=== PATIENT | male | born 1950 | race Caucasian/White ===

== ENCOUNTER 2016-08-29 07:53 | Emergency (ER) | payer MEDICARE ==
[~2016-08-29] VITALS: Ht 182.9 cm; Wt 98.0 kg
[2016-08-29] MEDS ORDERED: SODIUM CHLORIDE 0.9% NEB SOLN 3 ML VIAL ONE (08:14)
[2016-08-29] MEDS ORDERED: LEVALBUTEROL 1.25 MG/0.5 ML (XOPENEX) NEB INH ONE (08:15)
[2016-08-29 08:37] LABS: INFLUENZA VIRUS TYPE A ANTIBOD Positive (NEGATIVE); INFLUENZA VIRUS TYPE B ANTIBOD Negative (NEGATIVE)
[2016-08-29] MEDS ORDERED: predniSONE 20 MG (DELTASONE) TABLET PO ONE (08:50)
[2016-08-29] MEDS ORDERED: LEVOFLOXACIN 250 MG TAB (LEVAQUIN) PO SCH (08:50)
[2016-08-29 09:07] VITALS: BP 129/76
== END 2016-08-29 09:08 | disposition home or self-care (01) ==
LOC: EDUNIT# 07:53 → ED 07:55
DX: J10.00 Influenza due to other identified influenza virus with unspecified type of pneumonia (principal); J45.901 Unspecified asthma with (acute) exacerbation; Z87.891 Personal history of nicotine dependence
CPT/HCPCS: 71020; 87502; 94640; 99282; A9270; 99283

== ENCOUNTER 2016-09-08 17:25 | Inpatient (IN) | payer MEDICARE ==
[~2016-09-08] VITALS: Ht 182.9 cm; Wt 94.3 kg
[2016-09-08] MEDS ORDERED: ALBUTEROL 0.083% NEB SOLUTION 2.5 MG/3 ML VIAL INH ONE (17:45)
[2016-09-08] MEDS ORDERED: IPRATROPIUM 0.02% NEB SOLN 0.5 MG/2.5 ML (ATROVENT) INH ONE (17:45)
[2016-09-08 18:21] LABS: MEAN CORPUSCULAR VOLUME 90 FL (80-100); PLATELET COUNT 199 10^3uL (150-450); WHITE BLOOD COUNT 6.98 10^3uL (4.0-11.0)
[2016-09-08 18:30] LABS: ANION GAP 16.5 MEQ/L (3-15); CALCULATED IONIZED CALCIUM 4.1 mg/dL (3.8-4.6); TOTAL PROTEIN 7.2 g/dL (6.4-8.5)
[2016-09-08 18:33] LABS: MEAN CORPUSCULAR HEMOGLOBIN 31.9 PG (26.0-34.0); MEAN CORPUSCULAR HGB CONC 35.5 g/dL (31.0-37.0)
[2016-09-08 18:34] LABS: BAND NEUTROPHILS % 4 % (0-6); LYMPHOCYTES # 0.9 #; SEGMENTED NEUTROPHILS % 61 % (51-67)
[2016-09-08 18:35] LABS: EOSINOPHILS % 3 % (0-4); MONOCYTES # 1.1 #; MONOCYTES % 18 % (3-11); RBC MORPH NORMAL (NORMAL); TOTAL CELLS COUNTED 100
[2016-09-08] MEDS ORDERED: cefTRIAXone SODIUM 1,000 MG in SODIUM CHLORIDE 50 ML IV ONE (19:00)
[2016-09-08] MEDS ORDERED: AZITHROMYCIN VIAL 500 MG in SODIUM CHLORIDE 250 ML IV ONE (19:00)
[2016-09-08 19:15] VITALS: BP 129/86
--- NOTE | 2016-09-08 19:15 | NUR ---
Patient admitted to room and hospital procedures. Call light within reach. Dr jacob to see patient.
[2016-09-08] MEDS ORDERED: ACETAMINOPHEN 325 MG TAB (TYLENOL) PO PRN (19:40)
[2016-09-08] MEDS ORDERED: CALCIUM CARBONATE CHEWABLE 300 MG (TUMS) TABLET PO PRN (19:40)
[2016-09-08] MEDS ORDERED: ALBUTEROL HFA (VENTOLIN HFA) COMMON CANNISTER IH PRN (19:40)
[2016-09-08 19:57] VITALS: BP 129/86
[2016-09-08] MEDS ORDERED: VANCOMYCIN 1000 MG VIAL ONE (20:08)
[2016-09-08] MEDS ORDERED: SODIUM CHLORIDE 250 ML ONE (20:09)
[2016-09-08] MEDS ORDERED: PIPERACILLIN/TAZOBACTAM 4.5 GM (ZOSYN) VIAL IV ONE (20:42)
[2016-09-08] MEDS ORDERED: SODIUM CHLORIDE 100 ML ONE (20:43)
[2016-09-08] MEDS ORDERED: VANCOMYCIN 1,000 MG in SODIUM CHLORIDE 250 ML IV SCH (21:00)
[2016-09-08] MEDS ORDERED: FLUTICASONE/SALMETEROL HFA 115/21 MCG (ADVAIR) COMMON CANNISTER INH ONE (21:15)
--- NOTE | 2016-09-08 22:00 | NUR ---
Patient resting well. IV fluids infused. IV antibiotics administered as ordered. Patient states that he feels better already. Ready for sleep. No discomforts voiced at this time. Reminded patient to use call light.
[2016-09-08] MEDS: PIPERACILLIN/TAZOBACTAM 4.5 GM in SODIUM CHLORIDE 100 ML IV SCH (22:09)
[2016-09-08] MEDS: MONTELUKAST 10 MG (SINGULAIR) TAB PO SCH (22:11)
[2016-09-09 01:14] VITALS: BP 104/62
[2016-09-09 06:13] LABS: BASOPHILS % (AUTO) 0 % (0-2); EOSINOPHILS # (AUTO) 0.2 10^3uL; EOSINOPHILS % (AUTO) 4 % (0-4); LYMPHOCYTES # (AUTO) 0.7 X10^3; MEAN CORPUSCULAR HGB CONC 35.1 g/dL (31.0-37.0); MEAN CORPUSCULAR VOLUME 91 FL (80-100); MEAN PLATELET VOLUME 9.8 FL (6.0-9.5); MONOCYTES # (AUTO) 0.9 X10^3; MONOCYTES % (AUTO) 15 % (3-11); NEUTROPHILS # (AUTO) 3.9 X10^3; NEUTROPHILS % (AUTO) 67 % (51-67); PLATELET COUNT 169 10^3uL (150-450); WHITE BLOOD COUNT 5.73 10^3uL (4.0-11.0)
[2016-09-09 06:18] LABS: MEAN CORPUSCULAR HEMOGLOBIN 32.1 PG (26.0-34.0)
--- NOTE | 2016-09-09 06:30 | NUR ---
Patient rested at long intervals tonight.. No discomforts voiced. IV antibiotics continue. No complications at IV site. Patient is voiding without difficulty. No needs or concerns this morning.
[2016-09-09] MEDS: PIPERACILLIN/TAZOBACTAM 4.5 GM in SODIUM CHLORIDE 100 ML IV SCH ×3 (06:39→22:21)
[2016-09-09 06:53] LABS: ALBUMIN 2.9 g/dL (3.4-5.0); ANION GAP 11.3 MEQ/L (3-15); CALCULATED IONIZED CALCIUM 4.3 mg/dL (3.8-4.6); TOTAL PROTEIN 5.4 g/dL (6.4-8.5)
[2016-09-09] MEDS ORDERED: [UNRECOGNIZED DRUG - OTHER] IH SCH (08:00)
[2016-09-09] MEDS ORDERED: FLUTICASONE IH SCH (08:00)
[2016-09-09] MEDS ORDERED: SALMETEROL IH SCH (08:00)
[2016-09-09] MEDS: TIOTROPIUM 18 MCG/CAP (SPIRIVA) INHALER (5 CAPS) IH SCH (08:00)
--- NOTE | 2016-09-09 08:20 | NUR ---
NUTRITION ASSESSMENT Level 1 Patient: Riley Milligan Age/Sex: 66/M Date Screened: 09-09-16 Weight: 206.5#/93.9 kg Height: 72 inches Primary Diagnosis: pneumonia Diet Order: regular Relevant labs: glucose 116 Food allergies: N Nutrition Assessment Criteria Age over 80: N Body Mass Index (BMI) under 19: N Admission Screening Indicates Risk? 3 points Moderate/High Risk Diagnosis: 3 points TPN or PPN: N NPO or clear liquid diet: N Serum Glucose <70 or >180: N Hgb A1c >6.7: N/A Total: 6 points Risk Screen: __ Patient at low nutritional risk based on available data; reevaluate in 5-7 days __ Patient at moderate nutritional risk based on available data; reevaluate in 3-5 days _X_ Patient at high nutritional risk; complete Nutrition Assessment within 48 hours of admission.
[2016-09-09 08:37] VITALS: BP 121/81
[2016-09-09] MEDS: LORATADINE (CLARITIN) 10 MG TAB PO SCH (09:11)
[2016-09-09] MEDS: ASPIRIN 81 MG CHEW (CHILDREN'S ASA) PO SCH (09:11)
[2016-09-09] MEDS: ENOXAPARIN 40 MG/0.4 ML (LOVENOX) SYR SC SCH (09:12)
--- NOTE | 2016-09-09 09:14 | NUR ---
unable to give vanco at this time. zosyn still infusing
[2016-09-09] MEDS ORDERED: NS FLUSH 10 ML PRN IV (09:40)
[2016-09-09] MEDS ORDERED: NS FLUSH 3 ML PRN IV (09:40)
--- NOTE | 2016-09-09 10:30 | NUR ---
MED REC COMPLETE--current med list obtained from patient interview conducted by Verito Cabrera, Pharm. D. Candidate 2017.
[2016-09-09] MEDS: FLUTICASONE/SALMETEROL HFA 115/21 MCG (ADVAIR) COMMON CANNISTER INH SCH ×2 (10:45→19:24)
[2016-09-09] MEDS ORDERED: VANCOMYCIN 2000 MG in NS IV 480 ML IV SCH (11:00)
[2016-09-09 16:53] VITALS: BP 115/77
--- NOTE | 2016-09-09 17:55 | NUR ---
Vancomycin Dosing: Pharmacy Managed S: Pneumonia (failed outpatient therapy--7 day course of Levaquin) O: 66 yo male with continued cough and dyspnea on exertion. Blood cx pending; lactic acid 2.4 mmol/L, SCr 1.53 mg/dL, CrCl 55 mL/min. A/P: Zosyn and vancomycin initiated empirically. Patient received vancomycin 1 g IV x 1 dose. Recommend vancomycin 2 g IV daily to achieve therapeutic goal of 15-20 mcg/mL. Predicted trough = 15.9 mcg/mL. Draw trough prior to 4th overall dose (09/11/16 at 1030).
--- NOTE | 2016-09-09 18:06 | NUR ---
NUTRITION ASSESSMENT Level II Patient: Riley Milligan Age/Sex: 66/M Date Assessed: 09-09-16 ASSESSMENT Pertinent History: Patient admitted with pneumonia and screened at high nutritional risk secondary to diagnosis and recent hospitalization (independent risk factor for malnutrition), as well as reported 5# weight loss. PMHx includes COPD and hospitalization last week for pneumonia. Documented weight hx. includes 208.6# on 09-01-16, which was stable over the past 6 months. Meds/Nutrition: N/A Weight: 206.5#/93.9 kg Height: 72 inches Body Mass Index (BMI): 28.1 [place] Body Weight : 178#/80.9 kg % IBW: 116% GASTROINTESTINAL Appetite: stated good on admission Diet Order: regular Unintentional loss of >10 lbs. in 3 months: N Difficult to chew/swallow: N Diabetes: N Relevant Labs: glucose 116 Calculations for Nutritional Assessment Estimated calorie needs: 22-25 kcals/kg = 2,000-2,325 kcals Estimated protein needs: 1.0-1.3 g/kg = 93-120 g./day DIAGNOSIS 1. Nutrition Diagnosis: Increased protein needs related to increased work of breathing as evidenced by pneumonia in pt. with COPD. NUTRITIONAL INTERVENTION Goal: Patient will receive adequate nutrition to meet his needs. Plan: Will provide regular diet as ordered with emphasis on protein; recommend minimum intake of 93 g. protein/day as calculated above. Will monitor intake for adequacy and reassess regularly. MONITORING & EVALUATION _X_ Monitor patients menu selections _X_ Monitor patients food intake per nursing notes __ Monitor NPO/clear liquid days __ Monitor lab values __ Monitor I&O __ Other
[2016-09-09] MEDS ORDERED: cefTRIAXone SODIUM 1,000 MG in SODIUM CHLORIDE 50 ML IV ONE (19:00)
[2016-09-09] MEDS ORDERED: AZITHROMYCIN VIAL 500 MG in SODIUM CHLORIDE 250 ML IV ONE (19:00)
--- NOTE | 2016-09-09 19:45 | NUR ---
Pt is sitting up on side of bed visiting with friend. Alert and oriented x 4, Resp are even and nonlabored. SL is patent, no redness, swelling, or s/s of infection noted at this time. Denies pain or discomfort at this time. Pt was up ambulating in hallways at shift change. See shift assessment for further information. Call light is in reach, will continue to monitor.
[2016-09-09] MEDS: MONTELUKAST 10 MG (SINGULAIR) TAB PO SCH (22:21)
[2016-09-10] VITALS: BP 117/75
--- NOTE | 2016-09-10 04:18 | NUR ---
Pt is resting in bed asleep, has been sleeping most of this shift. Denies pain or discomfort during this shift. Call light is in reach, will continue to monitor.
[2016-09-10] MEDS: PIPERACILLIN/TAZOBACTAM 4.5 GM in SODIUM CHLORIDE 100 ML IV SCH (05:33)
[2016-09-10 08:11] VITALS: BP 118/70
[2016-09-10] MEDS: FLUTICASONE/SALMETEROL HFA 115/21 MCG (ADVAIR) COMMON CANNISTER INH SCH (09:00)
[2016-09-10] MEDS ORDERED: NS FLUSH 3 ML DAILY IV SCH (09:00)
[2016-09-10] MEDS: TIOTROPIUM 18 MCG/CAP (SPIRIVA) INHALER (5 CAPS) IH SCH (09:00)
[2016-09-10] MEDS ORDERED: AMOXICILLIN/CLAVULANATE 875MG-125MG (AUGMENTIN) TABLET PO SCH (09:55)
[2016-09-10] MEDS: LORATADINE (CLARITIN) 10 MG TAB PO SCH (09:59)
[2016-09-10] MEDS: ASPIRIN 81 MG CHEW (CHILDREN'S ASA) PO SCH (09:59)
[2016-09-10] MEDS: ENOXAPARIN 40 MG/0.4 ML (LOVENOX) SYR SC SCH (10:00)
[2016-09-10] MEDS ORDERED: DOXYCYCLINE 100 MG (VIBRAMYCIN) TABLET PO SCH (10:03)
[2016-09-10 10:24] LABS: ALBUMIN 3.5 g/dL (3.4-5.0); ANION GAP 12.1 MEQ/L (3-15); PHOSPHORUS 2.6 mg/dL (2.4-4.9)
[2016-09-10] MEDS ORDERED: VANCOMYCIN COMPOUNDED BY PHARMACY IV SCH (11:00)
--- NOTE | 2016-09-10 11:00 | NUR ---
IV REMOVED PER YESIKA HOYT
--- NOTE | 2016-09-10 11:03 | NUR ---
Pharmacy at bedside. Discharge instructions given and questions answered.
--- NOTE | 2016-09-10 11:16 | NUR ---
DISMISSED PER AMB ACCOMPANIED BY CHERELLE MEJÍA AND SPOUSE. ALERT AND ORIENTED X4. SKIN W/P/D. RESP REG AND UNLABORED.
== END 2016-09-10 11:17 | disposition home or self-care (01) | DRG 190 ==
LOC: ED 17:26 → MED/SURG 19:04 → OBSVTOIN 09-09 16:14
PROVIDERS: ADMIT Family Medicine; ATTEND Family Medicine
DX: J44.0 Chronic obstructive pulmonary disease with (acute) lower respiratory infection (principal); J18.9 Pneumonia, unspecified organism; J45.909 Unspecified asthma, uncomplicated; R00.0 Tachycardia, unspecified; M19.90 Unspecified osteoarthritis, unspecified site; Z79.82 Long term (current) use of aspirin; Z87.891 Personal history of nicotine dependence
CPT/HCPCS: 36415; 71020; 80053; 80069; 83605; 85025; 87040; 87486; 87581; 87633; 87798; 93005; 94640; 94669; 96360; 96361; 99283

== ENCOUNTER → 2016-11-30 | Outpatient (REF) | payer MEDICARE ==
[~2016-11-30] MED LIST: ADV250-14 INH; ALBU8.5H2 IH; ALBU8.5H2 INH; AMOX1TAB12 PO; ASPI-860 PO; AZIT250T5 PO; DOXY100T41 PO; GUAI5SYR PO; LEVO500T16 PO; LEVO750T39 PO; LORA10TA7 PO; LVF500T PO; MNTL10T PO; PRD10T PO; PRED20TA PO; TIOT18CA IH; TIOT4MIS5 INH
[2016-11-30 13:00] LABS: ALBUMIN 4.4 g/dL (3.4-5.0); ANION GAP 16.7 MEQ/L (3-15); CALCULATED IONIZED CALCIUM 4.3 mg/dL (3.8-4.6)
== END ==
LOC: LAB 11:55
PROVIDERS: ATTEND Nurse Practitioner Family
DX: Z13.6 Encounter for screening for cardiovascular disorders (principal); Z11.59 Encounter for screening for other viral diseases
CPT/HCPCS: 80053; 80061; 86803